=== PATIENT | male | born 1960 | race Caucasian/White ===

== ENCOUNTER 2021-10-26 07:34 | Emergency (ER) | payer OTHER ==
[~2021-10-26 07:34] MED LIST: LIPITOR 10MG TA10 MG PO; NORVASC5 MG PO; PRINIVIL10 MG PO
[2021-10-26] MEDS ORDERED: NORCO 5/3251 EACH PO ×2 (09:29→09:36)
== END 2021-10-26 09:42 | disposition home or self-care (01) ==
LOC: FER 07:34
DX: S20.212A Contusion of left front wall of thorax, initial encounter (principal); I10 Essential (primary) hypertension; Z79.82 Long term (current) use of aspirin; Z79.899 Other long term (current) drug therapy; V69.9XXA Occupant (driver) (passenger) of heavy transport vehicle injured in unspecified traffic accident, initial encounter
CPT/HCPCS: 71250